=== PATIENT | male | born 1995 | race African-American/Black ===

== ENCOUNTER 2018-10-01 22:04 | Emergency (ER) | payer OTHER ==
[~2018-10-01] VITALS: Ht 190.5 cm; Wt 90.7 kg
[~2018-10-01 22:04] MED LIST: NKM
--- NOTE | 2018-10-01 22:20 | NUR ---
ED Nurse Note: Pt arrived ED from home, c/o has a warts under his right foot, and c/o pain 9/10. Pt is A/O X4. VSS.
[2018-10-01] MEDS ORDERED: SALICYLIC ACID TP (22:30)
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
[2018-10-01 22:40] VITALS: BP 122/73
[2018-10-01 22:45] VITALS: BP 125/72
--- NOTE | 2018-10-01 22:45 | NUR ---
ER DISCHARGE NOTE: Patient is cleared to be discharged per Dr. Gamez. Dressing applied to right foot. Pt is A/O x4 on room air with stable vital signs. Pt was given dc instructions and able to verbalize understanding. Pt's ID band removed. Pt is able to ambulate with steady gait and took all belongings.
== END 2018-10-01 22:40 | disposition home or self-care (01) ==
LOC: EMR 22:26
DX: L84 Corns and callosities (principal)
CPT/HCPCS: 99282